=== PATIENT | female | born 1935 | race Caucasian/White ===

== ENCOUNTER 2025-08-04 07:34 | Emergency (ER) | payer MEDICARE, OTHER ==
[2025-08-04] MEDS ORDERED: Sodium Chloride 0.9% 10 ML Syringe FLUSH PRN (07:43)
[2025-08-04] MEDS: Labetalol 100 MG/20 ML MDV IVPUSH ONE (07:59)
[2025-08-04 08:11] LABS: BASOPHILS ABSOLUTE AUTO 0.1 K/mm3 (0.0-0.2); BASOPHILS PERCENT AUTO 1.0 % (0.0-1.0); EOSINOPHILS ABSOLUTE AUTO 0.4 K/mm3 (0.0-0.4); EOSINOPHILS PERCENT AUTO 6.0 % (0.0-6.0); IMMATURE GRAN ABSOLUTE AUTO 0.01 K/mm3 (0.00-0.05); IMMATURE GRAN PERCENT AUTO 0.1 % (0.0-0.4); LYMPHOCYTES ABSOLUTE AUTO 1.3 K/mm3 (1.0-4.8); LYMPHOCYTES PERCENT AUTO 19.7 % (24.0-44.0); MEAN PLATELET VOLUME 10.4 fl (9.4-12.3); MONOCYTES ABSOLUTE AUTO 0.5 K/mm3 (0.0-0.8); MONOCYTES PERCENT AUTO 6.9 % (0.0-8.0); NEUTROPHILS ABSOLUTE AUTO 4.4 K/mm3 (1.8-7.7); NEUTROPHILS PERCENT AUTO 66.3 % (41.0-71.0); NRBC ABSOLUTE 0.00 (0.00-0.02); NRBC PERCENT 0.0 % (0.0-0.2); PLATELET COUNT,PLT 160 K/mm3 (150-400); RED BLOOD CELL COUNT 4.50 M/mm3 (4.10-5.30); WHITE BLOOD CELL COUNT,WBC 6.69 K/mm3 (3.9-11.3)
[2025-08-04 08:30] LABS: INR 1.03
[2025-08-04 08:31] LABS: PTT,PARTIAL THROMBOPLSTIN TIME 25.4 SECONDS (21.7-31.4)
[2025-08-04 08:41] LABS: A/G RATIO 1.0 (1-2); ALANINE AMINOTRANSFERASE,ALT 25.0 U/L (14-59); ASPARTATE AMNIOTRANSFERASE,AST 52.0 U/L (15-37); BILIRUBIN TOTAL 0.7 mg/dL (0.2-1.0); BLOOD UREA NITROGEN,BUN 17.0 mg/dL (7-18); CARBON DIOXIDE,CO2 29.0 mEq/L (21-32); CHLORIDE,CL 108.0 mEq/L (98-107); CREATININE 0.8 mg/dL (0.55-1.02); EST CRCL DRUG DOSING (CG) 33.76 mL/min; ESTIMATED GFR 71.0 mL/min (>60); GLUCOSE RANDOM 186.0 mg/dL (70-99); POTASSIUM,K 4.5 mEq/L (3.5-5.1); PROTEIN TOTAL,TP 7.0 g/dl (6.4-8.2); SODIUM,NA 143.0 mEq/L (136-145); TROPONIN I HIGH SENSITIVITY 40.0 pg/mL (<=51)
== END 2025-08-04 09:25 | disposition home or self-care (01) ==
LOC: JD.ED 07:34
DX: J40 Bronchitis, not specified as acute or chronic (principal)
CPT/HCPCS: 36415; 71045; 80053; 83605; 83735; 84484; 85025; 85610; 85730; 86140; 93005; 96374; 99285; J1920; 93010; 99283